=== PATIENT | female | born 1975 | race African-American/Black ===

== ENCOUNTER 2018-02-03 21:46 | Emergency (ER) | payer MEDICAID, OTHER ==
[~2018-02-03] VITALS: Ht 167.6 cm; Wt 59.0 kg
[~2018-02-03 21:46] MED LIST: IBUP-1008 PO
[2018-02-03 22:53] VITALS: BP 118/79
== END 2018-02-04 03:24 | disposition left against medical advice (07) ==
LOC: ER 21:46
DX: Z53.21 Procedure and treatment not carried out due to patient leaving prior to being seen by health care provider (principal)